=== PATIENT | female | born 1990 | race Caucasian/White ===

== ENCOUNTER 2016-08-14 07:08 | Emergency (ER) | payer OTHER ==
[~2016-08-14] VITALS: Ht 170.2 cm; Wt 89.4 kg
[~2016-08-14 07:08] MED LIST: LEXAPRO20 MG PO; LOESTRIN1 EACH PO; MICROGESTIN1 EACH PO; NOHOMEMEDS; ONDANSETRON ODT4 MG PO; PEPCID20 MG PO; PERCOCET 10/1 TABLET PO; PROTONIX40 MG PO; RIZATRIPTAN10 M1 PO; SINGULAIR10 MG PO; SKYLA1 EACH IY; TOPAMAX100 MG PO; TOPAMAX25 MG PO; TORADOL10 MG PO; TYLENOL WITH C1 EACH PO; VENTOLIN HFA18 GM IH; WELLBUTRIN XL150 MG PO; YAZ 28 TABLET1 EACH PO; ZOFRAN ODT4 MG PO; ZYRTEC10 M3 PO
[2016-08-14 08:37] LABS: ADD MIUA? YES; BILIRUBIN NEGATIVE; BLOOD NEGATIVE; COLOR AMBER ((YELLOW)); GLUCOSE (STRIP) NEGATIVE; KETONES NEGATIVE; LEUKOCYTES NEGATIVE; NITRITE NEGATIVE; PROTEIN (STRIP) 100; SPECIFIC GRAVITY 1.018 (1.000-1.030); UROBILINOGEN 0.2 MG/DL (0.2-1.0)
[2016-08-14 08:46] LABS: BACTERIA RARE /HPF; EPITHELIAL CELLS RARE /HPF; MUCUS 1+ /LPF; WHITE BLOOD CELLS NONE SEEN /HPF (0-5)
[2016-08-14] MEDS ORDERED: ZOFRAN ODT4 MG PO (09:03)
[2016-08-14 09:29] VITALS: BP 117/76
== END 2016-08-14 09:57 | disposition home or self-care (01) ==
LOC: EME 07:08
PROVIDERS: Nurse Practitioner Family
DX: G43.909 Migraine, unspecified, not intractable, without status migrainosus (principal); J45.909 Unspecified asthma, uncomplicated; Z87.442 Personal history of urinary calculi; R56.9 Unspecified convulsions
CPT/HCPCS: 81003; 99281; 99285; J1200; J1885; J2765; J7030